=== PATIENT | female | born 1985 | race Caucasian/White ===

== ENCOUNTER 2019-08-16 09:48 | Emergency (ER) | payer OTHER, MEDICAID ==
[~2019-08-16] VITALS: Ht 170.2 cm; Wt 84.0 kg
[2019-08-16 09:57] VITALS: BP 128/69
[2019-08-16] MEDS ORDERED: IBUPROFEN 600MG TABLET PO STA (10:25)
== END 2019-08-16 13:13 | disposition home or self-care (01) ==
LOC: ER 09:57
DX: S87.82XA Crushing injury of left lower leg, initial encounter (principal); M25.562 Pain in left knee; V03.19XA Pedestrian with other conveyance injured in collision with car, pick-up truck or van in traffic accident, initial encounter; Y93.89 Activity, other specified; Y92.89 Other specified places as the place of occurrence of the external cause; Y99.8 Other external cause status
CPT/HCPCS: 73502; 73552; 73562; 73590; 81025; 99284